=== PATIENT | male | born 1945 | race Caucasian/White ===

== ENCOUNTER 2022-01-26 09:00 | Outpatient (RCR) | payer MEDICARE, BC, SELFPAY | END 2022-04-13 14:15 | disposition home or self-care (01) | PROVIDERS: PCP Family Medicine; Visit Provider Family Medicine | DX: M79.672 Pain in left foot (principal); Z51.89 Encounter for other specified aftercare | CPT/HCPCS: 97161; 97760; 97763 ==

== ENCOUNTER 2023-06-26 11:15 | Outpatient (RCR) | payer MEDICARE, BC, SELFPAY | END 2023-10-24 23:59 | disposition home or self-care (01) | PROVIDERS: PCP Family Medicine; Visit Provider Family Medicine | DX: M25.512 Pain in left shoulder (principal); M54.6 Pain in thoracic spine; G89.29 Other chronic pain; R42 Dizziness and giddiness; R53.1 Weakness; R29.898 Other symptoms and signs involving the musculoskeletal system; Z51.89 Encounter for other specified aftercare | CPT/HCPCS: 97035; 97110; 97140 ==

== ENCOUNTER 2025-04-02 08:17 | Outpatient (CLI) | payer MEDICARE, BC, SELFPAY | END 2025-04-02 08:18 | disposition home or self-care (01) | PROVIDERS: PCP Family Medicine; Visit Provider Family Medicine | DX: M54.16 Radiculopathy, lumbar region (principal); M48.062 Spinal stenosis, lumbar region with neurogenic claudication | CPT/HCPCS: 62323; Q9966 ==